=== PATIENT | female | born 1950 | race Caucasian/White ===

== ENCOUNTER 2023-02-04 20:53 | Emergency (ER) | payer MEDICAID ==
[~2023-02-04] VITALS: Ht 160 cm; Wt 74.8 kg
[2023-02-04 21:05] VITALS: BP 131/66
--- NOTE | 2023-02-04 21:08 | NUR ---
TO LOBBY A/W BED VIA W/C
--- NOTE | 2023-02-04 21:41 | NUR ---
PT TAKEN TO RADIOLOGY
[2023-02-04 21:48] LABS: BASOPHILS # (AUTO) 0.1 K/uL (0.00-0.22); BASOPHILS % (AUTO) 0.8 % (0.0-2.0); EOSINOPHILS # (AUTO) 0.3 K/uL (0-0.4); EOSINOPHILS % (AUTO) 2.6 % (0.0-4.0); HEMATOCRIT 39.1 % (36-48); LYMPHOCYTES # (AUTO) 2.2 K/uL (2.5-16.5); LYMPHOCYTES % (AUTO) 17.9 % (20.5-51.1); MEAN CORPUSCULAR HEMOGLOBIN 30 pg (27-31); MEAN CORPUSCULAR HGB CONC 33 g/dL (33-37); MEAN CORPUSCULAR VOLUME 89.8 fL (80-94); MONOCYTES # (AUTO) 0.9 K/uL (0.8-1.0); MONOCYTES % (AUTO) 7.4 % (1.7-9.3); NEUTROPHILS # (AUTO) 8.9 K/uL (1.8-7.7); NEUTROPHILS % (AUTO) 71.3 % (42.2-75.2); PLATELET COUNT (AUTO) 256 K/uL (140-450); RED BLOOD CELL COUNT(AUTO) 4.35 MIL/uL (4.20-5.40); RED CELL DISTRIBUTION WIDTH 14.5 % (11.6-13.7); WHITE BLOOD COUNT (AUTO) 12.5 K/uL (4.8-10.8)
[2023-02-04 22:08] LABS: ANION GAP 10.4 (8-16); CARBON DIOXIDE 29.5 mmol/L (21-32); CREATININE 0.7 mg/dL (0.6-1.3); POTASSIUM 3.9 mmol/L (3.5-5.1); TOTAL BILIRUBIN 0.2 mg/dL (0.0-1.0)
--- NOTE | 2023-02-04 23:24 | NUR ---
Dr. Velázquez examining patient.
[2023-02-04] MEDS ORDERED: ALBUTEROL SULFATE/IPRATROPIU 3 ML SOL IH ONE (23:25)
[2023-02-04] MEDS ORDERED: AZITHROMYCIN 500 MG in DEXTROSE 5% 250 ML IV ONE (23:30)
[2023-02-04] MEDS ORDERED: MAG SULF 2000 MG/WATER PREMIX 50 ML IV ONE (23:30)
[2023-02-04] MEDS ORDERED: methylPREDNISolone SS 125 MG in WATER STERILE 2 ML IV SCH (23:30)
[2023-02-04] MEDS ORDERED: WATER STERILE 10 ML MC ONE (23:48)
[2023-02-04] MEDS ORDERED: methylPREDNISolone SS 125 MG/2 ML VIAL ONE (23:48)
[2023-02-04] MEDS ORDERED: cefTRIAXone 1,000 MG VIAL ONE (23:49)
[2023-02-04] MEDS ORDERED: AZITHROMYCIN 500 MG INJ VIAL IV ONE (23:50)
[2023-02-05] MEDS ORDERED: FLUT1DSK2 IH (01:38)
[2023-02-05] MEDS ORDERED: AMOX1TAB8 PO (01:38)
[2023-02-05] MEDS ORDERED: ALBU0.0912 INH (01:38)
[2023-02-05] MEDS ORDERED: PRED20TA5 PO (01:38)
--- NOTE | 2023-02-05 02:00 | NUR ---
Patient received on bed lying comfortably and awake. Alert and oriented x4. No acute distress. No complaints of pain or discomfort.
--- NOTE | 2023-02-05 02:50 | NUR ---
IV removed, catheter intact and site benign. Applied folded 4x4 gauze and tape to stop bleeding.
--- NOTE | 2023-02-05 02:52 | NUR ---
Patient discharged with v/s stable. Written and verbal after care instructions given and explained. Patient alert, oriented and verbalized understanding of instructions. Ambulatory with steady gait. All questions addressed prior to discharge. ID band removed. Patient advised to follow up with PMD. Rx of ALBUTEROL, PREDNISONE, ADVAIR, AUGMENTIN given. Patient educated on indication of medication including possible reaction and side effects. Opportunity to ask questions provided and answered.
== END 2023-02-05 02:52 | disposition home or self-care (01) ==
LOC: MED 20:53
DX: J44.9 Chronic obstructive pulmonary disease, unspecified (principal); F17.200 Nicotine dependence, unspecified, uncomplicated; Z79.899 Other long term (current) drug therapy
CPT/HCPCS: 36415; 71045; 80053; 83880; 84484; 85025; 87040; 94640; 94760; 96365; 96367; 96375; 99284; J0456; J0696; J2930; J3475; Q0092